=== PATIENT | female | born 1990 | race African-American/Black ===

== ENCOUNTER 2017-03-19 22:24 | Emergency (ER) | payer SELFPAY ==
[~2017-03-19] VITALS: Ht 170.2 cm; Wt 90.0 kg
[~2017-03-19 22:24] MED LIST: IBUP600 PO; PREN0.01 PO
[2017-03-19 22:25] VITALS: BP 115/71; PULSE 80; RESP 18; TEMP 97.9; O2SAT 100
--- NOTE | 2017-03-19 22:54 | PD ---
HPI Chief Complaint: Complaint Time Seen by Provider: 22:45 Travel History International Travel<30 days: No Contact w/Intl Traveler<30days: No Traveled to known affect area: No History of Present Illness HPI 26 year old female presents for evaluation of dysuria, urinary hesitancy. Symptoms started this evening. She reports a burning sensation when she urinates. No pain, flank pain, nausea or vomiting, vaginal bleeding or discharge, fevers or chills. She has no other complaints at this time. [facility] Past Medical History Medical History: Denies Significant Hx Tetanus Vaccination: > 5 Years Influenza Vaccination: No ?: Not LMP: irreg : 1 : 1 Past Surgical History Surgical History: No Previous Surgery Social History Alcohol Use: Yes (rare) Tobacco Use: No Substance Use: Yes (MARIJUANA ) Allergies-Medications (Allergen,Severity, Reaction): Coded Allergies: No Known Allergies (Unverified , 03/19/17) Reported Meds & Prescriptions Reported Meds & Active Scripts Active No Active Prescriptions or Reported Medications Review of Systems Except as stated in HPI: all other systems reviewed are Neg Physical Exam Narrative GENERAL: Well-developed well-nourished female in no acute distress SKIN: Warm and dry. HEAD: Atraumatic. Normocephalic. EYES: Pupils equal and round. No scleral icterus. No injection or drainage. ENT: No nasal bleeding or discharge. Mucous membranes pink and moist. NECK: Trachea midline. No JVD. CARDIOVASCULAR: Regular rate and rhythm. No murmur appreciated. RESPIRATORY: No accessory muscle use. Clear to auscultation. Breath sounds equal bilaterally. GASTROINTESTINAL: Abdomen soft, non-tender, nondistended. Hepatic and splenic margins not palpable. Data Data Last Documented VS Vital Signs Date Time Temp Pulse Resp B/P Pulse Ox O2 Delivery O2 Flow Rate FiO2 03/19/17 22:25 97.9 80 18 115/71 100 Orders Urinalysis - C+S If Indicated (03/19/17 22:52) Ed Urine Pregnancytest Poc (03/19/17 22:52) Urine Culture (03/19/17 23:00) Nitrofurantoin Monohyd Macrocr (Macrobid (03/19/17 23:45) Phenazopyridine (Pyridium) (03/19/17 23:45) Labs Laboratory Tests Test 03/19/17 23:00 Urine Color YELLOW Urine Turbidity CLEAR Urine pH 6.5 Urine Specific [place] 1.016 Urine Protein TRACE mg/dL Urine Glucose (UA) NEG mg/dL Urine Ketones NEG mg/dL Urine Occult Blood MOD Urine Nitrite NEG Urine Bilirubin NEG Urine Urobilinogen 2.0 MG/DL Urine Leukocyte Esterase LARGE Urine RBC 60 /hpf Urine WBC 81 /hpf Urine Squamous Epithelial 1 /hpf Cells Urine Bacteria RARE /hpf Microscopic Urinalysis Comment CULTURE INDICATED MDM Medical Decision Making Medical Screen Exam Complete: Yes Emergency Medical Condition: Yes Medical Record Reviewed: Yes Differential Diagnosis Cystitis, urethritis, pyelonephritis Narrative Course 26-year-old female presents with 1 day of dysuria and urinary hesitancy. Physical examination is reassuring. Urine she test is negative. Urinalysis reveals large leukocytes with 81 the PVCs and 60 rbc's, rare bacteria, culture is therefore pending. The patient will empirically be started on Macrobid. She'll be given a prescription for Pyridium for the dysuria. She is stable for discharge. Diagnosis Primary Impression: Cystitis Additional Instructions: Medication as prescribed. Stay well hydrated and well-nourished. Return for any acutely new or worsening symptoms. Med/Other Pt SpecificInfo: Prescription(s) given Scripts Nitrofurantoin Monohydrate Macrocrystals (Macrobid)100 Mg [id number] Mg PO BID 7 Days Ref 0 Prov:Jya Mauricio MD 03/19/17 Phenazopyridine (Pyridium)100 Mg [id number] Mg PO Q8H PRN (DYSURIA) 3 Days Ref 0 Prov:Jay Mauricio MD 03/19/17 Disposition: 01 DISCHARGE HOME Condition: Stable Tam Mejía Mar 19, 2017 22:54
[2017-03-19 23:17] LABS: BACTERIA, URINE RARE /hpf; BLOOD, URINE MOD (NEG); COMMENT (UR) CULTURE INDICATED; CULTURE IF INDICATED CULTURE INDICATED; GLUCOSE,URINE NEG (NEG); KETONE, URINE NEG (NEG); NITRITE,URINE NEG (NEG); PH, URINE 6.5 (5.0-8.5); SQUAMOUS EPITHELIAL CELL URINE 1 /hpf (0-5); URINE COLOR YELLOW (YELLW/STRAW)
[2017-03-19] MEDS ORDERED: PHEN0.4T PO (23:34)
[2017-03-19] MEDS ORDERED: MACR100C2 PO (23:34)
[2017-03-19] MEDS ORDERED: NITROFURANTOIN MONOHYD MACROCR 100 MG CAP PO ONE (23:45)
[2017-03-19] MEDS ORDERED: PHENAZOPYRIDINE HCL 200 MG TAB PO ONE (23:45)
== END 2017-03-19 23:53 | disposition home or self-care (01) ==
LOC: NEPD 22:24
DX: N30.00 Acute cystitis without hematuria (principal); B96.20 Unspecified Escherichia coli [E. coli] as the cause of diseases classified elsewhere
CPT/HCPCS: 81001; 84703; 87077; 87086; 87186; 99284

== ENCOUNTER 2017-06-30 12:14 | Emergency (ER) | payer SELFPAY ==
[~2017-06-30] VITALS: Ht 167.6 cm; Wt 95.5 kg
[~2017-06-30 12:14] MED LIST changes: -IBUP600 PO; +MACR100C2 PO; +PHEN0.4T PO; -PREN0.01 PO
[2017-06-30 12:15] VITALS: BP 123/72; PULSE 93; RESP 18; TEMP 98.8; O2SAT 98
--- NOTE | 2017-06-30 13:56 | PD ---
HPI . Sore throat Chief Complaint: ENT Complaint Time Seen by Provider: 13:30 Travel History International Travel<30 days: No Contact w/Intl Traveler<30days: No Traveled to known affect area: No History of Present Illness HPI 27-year-old female presents to the emergency department for evaluation of sore throat 3 days. Patient states she has had low-grade fever intermittently. Patient denies any ear pain, abdominal, nausea, vomiting, diarrhea, chest pain, shortness breath, cough. Patient has no major medical history and doesn't take any daily medication. PFSH Past Medical History : 1 : 1 Social History Alcohol Use: Yes (rare) Tobacco Use: No Substance Use: Yes (MARIJUANA ) Allergies-Medications (Allergen,Severity, Reaction): Coded Allergies: No Known Allergies (Unverified , 03/19/17) Reported Meds & Prescriptions Reported Meds & Active Scripts Active Macrobid (Nitrofurantoin Monohydrate Macrocrystals) 100 Mg Capsule 100 Mg PO BID 7 Days Pyridium (Phenazopyridine HCl) 100 Mg Tab 100 Mg PO Q8H PRN 3 Days Review of Systems Except as stated in HPI: all other systems reviewed are Neg Physical Exam Narrative GENERAL: Well-nourished, well-developed 27 year old female patient in no acute distress. Nontoxic appearing. SKIN: Focused skin assessment warm/dry. HEAD: Normocephalic. Atraumatic. EYES: No scleral icterus. No injection or drainage. ENT: Mucosa pink and moist. Airway patent. Nasal turbinates appear mildly hypertrophic without nasal blood, purulent drainage or septal hematoma. THROAT: Mild pharyngeal injection with exudates and tonsillar hypertrophy. Airway is patent. NECK: Supple, trachea midline. No JVD or lymphadenopathy. CARDIOVASCULAR: Regular rate and rhythm without murmurs, gallops, or rubs. RESPIRATORY: Breath sounds equal bilaterally. No accessory muscle use. GASTROINTESTINAL: Abdomen soft, non-tender, nondistended. MUSCULOSKELETAL: No cyanosis, or edema. Data Data Last Documented VS Vital Signs Date Time Temp Pulse Resp B/P (MAP) Pulse Ox O2 Delivery O2 Flow Rate FiO2 06/30/17 13:37 18 06/30/17 12:15 98.8 93 123/72 (89) 98 Room Air Orders Orders Group A Rapid Strep Screen (06/30/17 13:39) Penicillin G Benzathine Inj (Bicillin L- (06/30/17 14:30) [facility] Medical Decision Making Medical Screen Exam Complete: Yes Emergency Medical Condition: Yes Differential Diagnosis Differential diagnoses include but not limited to viral pharyngitis, strep pharyngitis, URI, tonsillitis Narrative Course 27-year-old female patient presents to emergency room for evaluation of sore throat 3 days. Rapid strep ordered and pending. Rapid strep is positive. Patient given an IM injection of benzathine penicillin and discharged home with instructions for supportive care and to return the emergency Department with any worsening condition but otherwise follow-up with primary care. Diagnosis Primary Impression: Strep pharyngitis Referrals: Primary Care Physician Patient Instructions: General Instructions, Strep Throat (ED) Departure Forms: Tests/Procedures, Work Release Special Instructions: Return to work when fever free 24 hours Additional Instructions: Please return to emergency department if your symptoms return or worsen. Follow up with your primary care provider. May alternate ibuprofen and Tylenol as needed for pain or fevers. Stay hydrated, get enough rest, diet as tolerated Disposition: 01 DISCHARGE HOME Condition: Stable Margaret Alejandra Jun 30, 2017 13:56
[2017-06-30] MEDS ORDERED: PENICILLIN G BENZATHINE 1,200,000 UNITS/2 ML SYRINGE IM ONE (14:30)
== END 2017-06-30 15:25 | disposition home or self-care (01) ==
LOC: NEPK 12:14
DX: J02.0 Streptococcal pharyngitis (principal); Z79.899 Other long term (current) drug therapy
CPT/HCPCS: 87880; 96372; 99284; J0561